=== PATIENT | male | born 1965 | race Caucasian/White ===

== ENCOUNTER 2017-03-24 07:12 | Day surgery (SDC) | payer OTHER ==
[~2017-03-24] VITALS: Ht 175.3 cm; Wt 129.3 kg
[2017-03-24 08:03] VITALS: BP 135/81
[2017-03-24 10:53] VITALS: BP 133/79
== END 2017-03-24 12:00 | disposition home or self-care (01) ==
LOC: DS 07:12 → GI 08:00 → OR 08:00 → GI 08:30 → DS 12:00
PROVIDERS: Internal Medicine Gastroenterology
PROC: 0DJD8ZZ Inspection of Lower Intestinal Tract, Via Natural or Artificial Opening Endoscopic (ICD-10-PCS; principal; 2017-03-24 08:30)
DX: K64.8 Other hemorrhoids (principal); I10 Essential (primary) hypertension; R73.03 Prediabetes; F17.210 Nicotine dependence, cigarettes, uncomplicated; E66.01 Morbid (severe) obesity due to excess calories; Z68.42 Body mass index [BMI] 45.0-49.9, adult; Z79.84 Long term (current) use of oral hypoglycemic drugs
CPT/HCPCS: 45378; J1200; J1610; J2250; J2310; J3010; J3490